=== PATIENT | male | born 1995 | race Hispanic/Latino ===

== ENCOUNTER 2023-09-24 20:07 | Emergency (ER) | payer OTHER ==
[~2023-09-24] VITALS: Ht 167.6 cm; Wt 120.7 kg
[2023-09-24 20:47] LABS: RAPID GROUP A STREP negative (NEGATIVE)
[2023-09-24 20:51] LABS: SARS-CoV-2, RNA, NAAT NEGATIVE SARS CoV-2 (NEGATIVE)
[2023-09-24 20:57] LABS: INFLUENZA TYPE B Negative For Type B (NEGATIVE)
[2023-09-24] MEDS ORDERED: CEFTRIAXONE 1G VIAL IM ONE (21:00)
[2023-09-24 21:26] LABS: INFLUENZA TYPE A Positive For Type A (NEGATIVE)
[2023-09-24] MEDS ORDERED: AMOX1TAB16 PO (21:30)
[2023-09-24] MEDS ORDERED: BENZ-39 PO (21:30)
[2023-09-24] MEDS ORDERED: OSEL75 PO (21:30)
[2023-09-24 21:34] VITALS: BP 138/60; PULSE 92; RESP 18; O2SAT 97
== END 2023-09-24 21:38 | disposition home or self-care (01) ==
LOC: EDH 20:07
DX: J10.1 Influenza due to other identified influenza virus with other respiratory manifestations (principal); R50.9 Fever, unspecified; Z20.822 Contact with and (suspected) exposure to COVID-19
CPT/HCPCS: 99283; 87635; 87880; 87804 ×2; 96372; C9803; J0696